=== PATIENT | female | born 1985 | race Caucasian/White ===

== ENCOUNTER 2021-08-09 15:25 | Inpatient (IN) ==
[2021-08-09 16:12] LABS: Bilirubin,Urine Negative (Negative); Blood,Urine Negative (Negative); Clarity,Urine Turbid (Clear); Color,Urine Yellow (Yellow); Glucose,Urine (UA) Normal (Normal); Ketones,Urine Trace mg/dL (Negative); Leukocyte Esterase,Urine Large (Negative); Mucus,Urine Few per lpf (None-Few); Nitrite,Urine Negative (Negative); Protein,Urine Trace mg/dL (Neg-Trace); Squamous Epithelial Cell,Urine Few per hpf (None-Few); Urobilinogen,Urine Normal (Normal); WBC,Urine 0-3 per hpf (0-3)
[2021-08-09 16:20] LABS: Amphetamine Screen,Urine Negative ng/mL (Cutoff=1000); Barbiturate Screen,Urine Negative ng/mL (Cutoff=200); Benzodiazepines Screen,Urine Negative ng/mL (Cutoff=200); Cannabinoid Screen,Urine Negative ng/mL (Cutoff = 50); Cocaine Screen,Urine Negative ng/mL (Cutoff= 300); Opiate Screen,Urine Negative ng/mL (Cutoff=300); Phencyclidine Screen,Urine Negative ng/mL (Cutoff=25)
[2021-08-09 16:21] LABS: Basophils % 0.2 %; Eosinophils # 0.2 K/mcL (0.0-0.6); Eosinophils % 2.1 %; Hematocrit 42.6 % (35.3-44.9); Hemoglobin 14.2 g/dL (11.5-15.4); Immature Granulocytes % 0.2 % (0-4); Lymphocytes # 3.2 K/mcL (0.6-4.6); Lymphocytes % 32.7 %; Mean Corpuscular HGB Conc 33.3 g/dL (31.6-35.5); Mean Corpuscular Hemoglobin 28.7 pg (28.0-33.3); Mean Corpuscular Volume 86.1 fL (83.0-100.0); Mean Platelet Volume 10.1 fL (9.4-12.4); Monocytes # 0.7 K/mcL (0.0-1.3); Neutrophils # 5.6 K/mcL (1.6-8.9); Platelet Count 275 K/mcL (140-400); Red Blood Count 4.95 M/mcL (3.82-4.97); Red Cell Distribution Width 12.5 % (11.5-14.5); Segmented Neutrophils % 57.8 %; White Blood Count 9.7 K/mcL (4.3-11.1)
[2021-08-09 16:40] LABS: Acetaminophen < 10 mcg/mL (10-20); Alanine Aminotransferase 9 Units/L (7-52); Albumin 4.4 g/dL (3.5-5.7); Albumin/Globulin Ratio 1.4 (1.1-2.2); Alkaline Phosphatase 49 Units/L (34-104); Aspartate Amino Transferase 14 Units/L (13-39); BUN/Creatinine Ratio 14 (6-26); Bilirubin,Indirect 0.4 mg/dL (0.0-1.0); Bilirubin,Total 0.4 mg/dL (0.3-1.0); Blood Urea Nitrogen 11 mg/dL (6-20); Calcium 9.2 mg/dL (8.6-10.3); Carbon Dioxide 24 mEq/L (23-29); Chloride 108 mEq/L (98-107); Chol/HDL Ratio 3.6 (0-4.9); Cholesterol 137 mg/dL (< 200); Ethanol < 10 mg/dL (Less than 10); Globulin 3.2 g/dL (2.4-3.5); Glucose 84 mg/dL (70-105); HDL Cholesterol 38 mg/dL (40-59); LDL Cholesterol,Calculated 60 mg/dL (< 100); Osmolality,Calculated 289 (280-300); Potassium 3.6 mEq/L (3.5-5.1); Salicylate < 2.5 mg/dL (15.0-30.0); Sodium 140 mEq/L (136-145); Total Protein 7.6 g/dL (6.4-8.9); Triglycerides 193 mg/dL (< 150); eGFR For African Americans > 60 (> 60); eGFR For Non-African Americans > 60 (> 60)
[2021-08-09 16:48] LABS: Thyroid Stimulating Hormone 2.165 mcIU/mL (0.340-5.600)
[2021-08-09 16:56] LABS: Estimated Average Glucose 111 mg/dl; Hemoglobin A1C 5.5 %
[2021-08-09 21:57] LABS: Influenza A PCR Negative (Negative); Influenza B PCR Negative (Negative); Resp. Syncytial Virus PCR Negative (Negative)
[2021-08-09 22:25] LABS: SARS-CoV-2 by PCR (In House) Negative (Negative)
[2021-08-09] MEDS ORDERED: haloperidoL 5 MG TABLET PO PRN (22:39)
[2021-08-09] MEDS ORDERED: MOM Conc 10 ML UD.LIQ PO PRN (22:39)
[2021-08-09] MEDS ORDERED: QUEtiapine Fumarate 25 MG TABLET PO PRN (22:39)
[2021-08-09] MEDS ORDERED: hydrOXYzine pamoate 25 MG CAPSULE PO PRN (22:39)
[2021-08-09] MEDS ORDERED: Haloperidol Lactate 5 MG/ML VIAL IM PRN (22:39)
[2021-08-09] MEDS ORDERED: *HR* LORazepam 1 MG TABLET PO PRN (22:39)
[2021-08-09] MEDS ORDERED: Mag Hydrox/Al Hydrox/Simeth 30 ML UDC PO PRN (22:39)
[2021-08-09] MEDS ORDERED: *HR* LORazepam 2 MG/ML VIAL IM PRN (22:39)
[2021-08-10] MEDS: Acetaminophen 325 MG TABLET PO PRN (10:57)
[2021-08-10 15:05] LABS: Bilirubin,Urine Negative (Negative); Blood,Urine Negative (Negative); Clarity,Urine Clear (Clear); Color,Urine Light-Yellow (Yellow); Glucose,Urine (UA) Normal (Normal); Ketones,Urine Negative (Negative); Leukocyte Esterase,Urine Large (Negative); Mucus,Urine Few per lpf (None-Few); Nitrite,Urine Negative (Negative); PH,Urine 6.5 pH Units (5.0-8.0); Protein,Urine Negative (Neg-Trace); RBC,Urine 0-3 per hpf (0-3); Specific Gravity,Urine 1.016 (1.010-1.025); Sperm,Urine Present per hpf (None Seen); Squamous Epithelial Cell,Urine Moderate per hpf (None-Few); Urobilinogen,Urine Normal (Normal)
[2021-08-10] MEDS ORDERED: QUEtiapine Fumarate 100 MG TABLET PO PRN (21:00)
[2021-08-11] MEDS: Acetaminophen 325 MG TABLET PO PRN (09:14)
[2021-08-13] MEDS: Sulfamethoxazole/Trimeth DS 1 EACH TABLET PO SCH ×2 (09:45→21:19)
[2021-08-13] MEDS: Lurasidone 20 MG TABLET PO SCH (17:15)
[2021-08-14] MEDS: Sulfamethoxazole/Trimeth DS 1 EACH TABLET PO SCH ×2 (08:21→21:17)
[2021-08-14] MEDS ORDERED: Fluconazole 150 MG TABLET PO ONE (09:00)
[2021-08-14] MEDS: Lurasidone 20 MG TABLET PO SCH (17:10)
[2021-08-15] MEDS: Sulfamethoxazole/Trimeth DS 1 EACH TABLET PO SCH ×2 (08:44→19:55)
[2021-08-15] MEDS: Lurasidone 20 MG TABLET PO SCH (17:19)
[2021-08-15] MEDS ORDERED: Ondansetron ODT 4 MG TAB.RAPDIS SL PRN (19:41)
[2021-08-15] MEDS: Acetaminophen 325 MG TABLET PO PRN (19:55)
[2021-08-16] MEDS: Sulfamethoxazole/Trimeth DS 1 EACH TABLET PO SCH ×2 (09:13→21:45)
[2021-08-16] MEDS: Acetaminophen 325 MG TABLET PO PRN (16:52)
[2021-08-16] MEDS: Lurasidone 20 MG TABLET PO SCH (16:53)
[2021-08-17] MEDS: Sulfamethoxazole/Trimeth DS 1 EACH TABLET PO SCH ×2 (08:05→21:54)
[2021-08-17] MEDS: Lurasidone 20 MG TABLET PO SCH (16:56)
[2021-08-17] MEDS: Acetaminophen 325 MG TABLET PO PRN (16:56)
[2021-08-17] MEDS ORDERED: Haloperidol Lactate 5 MG/ML VIAL IM PRN (17:00)
[2021-08-18] MEDS: Sulfamethoxazole/Trimeth DS 1 EACH TABLET PO SCH ×2 (11:33→20:14)
[2021-08-18] MEDS: Lurasidone 20 MG TABLET PO SCH (17:33)
[2021-08-18] MEDS: Acetaminophen 325 MG TABLET PO PRN (17:34)
[2021-08-18 21:25] VITALS: O2SAT 98
[2021-08-19] MEDS: Sulfamethoxazole/Trimeth DS 1 EACH TABLET PO SCH (08:01)
[2021-08-19 09:26] VITALS: BP 126/85; PULSE 91; TEMP 98.1
== END 2021-08-19 16:30 | disposition home or self-care (01) | DRG 750 ==
LOC: EMEROOARM 15:25 → 1ANU 22:37
PROVIDERS: ADMIT Psychiatry & Neurology Psychiatry; ATTEND Psychiatry & Neurology Psychiatry